=== PATIENT | male | born 1980 | race Caucasian/White ===

== ENCOUNTER 2018-08-11 13:13 | Emergency (ER) | payer OTHER ==
[~2018-08-11] VITALS: Ht 175.3 cm; Wt 77.3 kg
[2018-08-11] MEDS ORDERED: ZOFRAN 4MG T4 MG/TAB PO (15:22)
[2018-08-11 15:35] VITALS: PULSE 59
== END 2018-08-11 15:35 | disposition home or self-care (01) ==
LOC: COL.ER 13:13
DX: A08.4 Viral intestinal infection, unspecified (principal)
CPT/HCPCS: J1885; J2405; J7120

== ENCOUNTER 2023-10-28 20:25 | Emergency (ER) | payer OTHER ==
[~2023-10-28] VITALS: Ht 175.3 cm; Wt 79.5 kg
[~2023-10-28 20:25] MED LIST: ZOFRAN 4MG T4 MG/TAB PO
[2023-10-28 20:30] VITALS: TEMP 98.3
[2023-10-28 20:56] LABS: BASO # 0.1 K/mm3 (0.0-0.2); BASO % 0.4 % (0.0-2.0); EOS # 0.1 K/mm3 (0.0-0.7); EOS % 0.7 % (0.0-4.0); GRAN # 8.1 K/mm3 (1.4-6.5); GRAN % 70.6 % (42.2-75.2); HEMATOCRIT 44.4 % (42.0-52.0); HEMOGLOBIN 15.5 g/dl (13.5-18.0); LYMPH # 2.2 K/mm3 (1.2-3.4); LYMPH % 19.3 % (20.0-51.0); MEAN CELL VOLUME 92 fl (80.0-100.0); MEAN CORPUSCULAR HEMOGLOBIN 32 pg (27-31); MEAN CORPUSCULAR HGB CONC 35 g/dl (33.0-37.0); MEAN PLATELET VOLUME 9.5 fl (7.4-10.4); MONO % 8.7 % (1.7-9.3); PLATELET COUNT 290 K/mm3 (130-400); RED BLOOD COUNT 4.81 M/mm3 (4.20-5.60); REDCELL DISTRIBUTION WIDTH-CV 13.1 % (11.5-14.5)
[2023-10-28] MEDS ORDERED: Mag/Al Hydrox/Simeth Susp 30 ML CUP PO ONE (21:00)
[2023-10-28 21:10] LABS: PARTIAL THROMBOPLASTIN TIME 27.4 SECONDS (26.0-37.0)
[2023-10-28 21:15] LABS: ALBUMIN 4.3 gm/dL (3.5-5.0); BILIRUBIN,TOTAL 1.2 mg/dL (0.2-1.2); CALCIUM 9.3 mg/dL (8.4-10.2); CREATININE, serum 1.31 mg/dL (0.72-1.25); POTASSIUM 3.4 mmol/L (3.5-4.5); TOTAL PROTEIN 7.1 gm/dL (6.2-8.1)
[2023-10-28] MEDS ORDERED: LORazepam 2 MG/ML 1 ML VIAL IV ONE (21:15)
[2023-10-28 21:21] LABS: TROPONIN-I 0.011 ng/mL (0.00-0.033)
[2023-10-28 21:25] LABS: INR 1.1 (0.8-3.0); PROTHROMBIN TIME 11.8 SECONDS (9.7-12.8)
[2023-10-28] MEDS ORDERED: NS 1,000 ML IV ONE (22:00)
[2023-10-28] MEDS ORDERED: PEPCID40 MG PO (22:05)
[2023-10-28 22:18] LABS: PH 7.5 (5.0-8.5); URINE APPEARANCE CLEAR (CLEAR/HAZY); URINE BLOOD NEGATIVE (NEGATIVE); URINE COLOR YELLOW (YELLOW); URINE GLUCOSE NEGATIVE (NEGATIVE); URINE KETONE 3+ (NEGATIVE); URINE NITRATE NEGATIVE (NEGATIVE); URINE PROTEIN(semi-quant) NEGATIVE (NEGATIVE)
[2023-10-28 22:27] LABS: COLLECTION METHOD CLEAN CATCH
[2023-10-28 23:18] VITALS: BP 178/83; PULSE 61
== END 2023-10-28 23:08 | disposition home or self-care (01) ==
LOC: COL.ER 20:25
PROVIDERS: Internal Medicine
DX: K29.00 Acute gastritis without bleeding (principal); K21.00 Gastro-esophageal reflux disease with esophagitis, without bleeding; E86.0 Dehydration; E87.6 Hypokalemia
CPT/HCPCS: J2060; J7030